=== PATIENT | male | born 1965 | race Two or more races ===

== ENCOUNTER → 2017-12-12 | Outpatient (CLI) | payer OTHER ==
[~2017-12-12] MED LIST: LOPRESSOR25 MG
== END | disposition home or self-care (01) ==
LOC: LAB 14:56
DX: R31.0 Gross hematuria (principal)

== ENCOUNTER 2017-12-13 06:34 | Outpatient (CLI) | payer OTHER | END 2017-12-13 07:26 | disposition home or self-care (01) | LOC: LAB 06:34 | DX: R31.0 Gross hematuria (principal) ==

== ENCOUNTER 2017-12-13 07:09 | Outpatient (CLI) | payer OTHER | END 2017-12-13 09:42 | disposition home or self-care (01) | LOC: TOM 07:09 | DX: R31.0 Gross hematuria (principal) ==

== ENCOUNTER 2018-01-03 11:53 | Outpatient (CLI) | payer OTHER | END 2018-01-03 15:00 | disposition home or self-care (01) | LOC: RAD 11:53 | DX: N20.1 Calculus of ureter (principal) ==

== ENCOUNTER 2021-06-08 09:30 | Emergency (ER) | payer OTHER ==
[~2021-06-08] VITALS: Ht 177.8 cm; Wt 108.9 kg
[2021-06-08] MEDS ORDERED: ADULT LOW DOSE81 M1 PO (09:45)
[2021-06-08] MEDS ORDERED: HYDROCHLOROTH12.5 MG PO (09:45)
[2021-06-08] MEDS ORDERED: SYNTHROID100 MCG PO (09:46)
[2021-06-08] MEDS ORDERED: TOPROL XL100 M1 PO (09:46)
== END 2021-06-08 10:44 | disposition home or self-care (01) ==
LOC: ER 09:30
DX: S93.401A Sprain of unspecified ligament of right ankle, initial encounter (principal); W18.30XA Fall on same level, unspecified, initial encounter; Y93.01 Activity, walking, marching and hiking; Y92.480 Sidewalk as the place of occurrence of the external cause; Y99.9 Unspecified external cause status

== ENCOUNTER → 2024-07-27 | Emergency (ER) | payer OTHER ==
[~2024-07-27] VITALS: Ht 180.3 cm; Wt 108.9 kg
[~2024-07-27] MED LIST changes: +0.9 % SODIUM CHLORIDE 1,000 ML IV STA; +ADULT LOW DOSE81 M1 PO; +HYDROCHLOROTH12.5 MG PO; +INSULIN REGULAR, HUMAN 1,000 UNIT/10 ML UNITS IV ONE; +SYNTHROID100 MCG PO; +TOPROL XL100 M1 PO
[2024-07-27 12:06] LABS: HEMATOCRIT 44.9 % (39.0-48.0); HEMOGLOBIN 15.5 g/dL (13-16.00); MEAN CELL VOLUME 87.5 fL (80.0-100.00); MEAN CORPUSCULAR HEMOGLOBIN 30.2 pg (27.00-32.0); MEAN CORPUSCULAR HGB CONC 34.5 g/dl (32.0-36.0); PLATELET COUNT 208 K/uL (150-450); RED BLOOD COUNT 5.13 M/uL (4.00-6.00); RED CELL DISTRIBUTION WIDTH 12.8 % (11.5-14.5)
[2024-07-27 12:40] LABS: ALBUMIN 3.3 gm/dL (3.4-5.0); BILIRUBIN TOTAL 0.7 mg/dL (0.3-1.2); CREATININE SERUM 1.16 mg/dL (0.70-1.30); GFR 64.01; GLOBULINA 3.7 G/DL (2.4-3.5); POTASSIUM 4.07 mEq/L (3.5-5.1)
[2024-07-27 12:42] LABS: URINE APPEARANCE Clear; URINE BILIRRUBIN Negative (NEGATIVE); URINE BLOOD Negative; URINE COLOR Yellow; URINE KETONE Negative (NEGATIVE); URINE LEUKOCYTE Negative; URINE NITRATE Negative; URINE PROTEIN Negative (NEGATIVE); URINE UROBILINOGEN 0.2 E.U./dl
[2024-07-27 12:46] LABS: ABG PH 7.426 (7.35-7.45); ABG PO2 85.8 mmHg (80-100); BASE EXCESS 0.8 mmol/l; BICARBONATE 25.1 mmol/l (23-25); SaO2 96.8 %; Tco2 26.2 mmol/l
[2024-07-27 13:16] LABS: allen test SATISFACTORY; o2 21 %; puncture site RADIAL RIGHT
[2024-07-27 13:32] LABS: URINE BACTERIA 3.6 uL (0.0-1933); URINE CAST 0.14 uL (0.0-1.40); URINE EPITHELIAL CELLS 0.4 uL (0.0-38.8); URINE GLUCOSE >=1000 MG/DL (NEGATIVE); URINE RBC 0.1 uL (0.0-20.8); URINE WBC 0.4 uL (0.0-23.2)
== END | disposition home or self-care (01) ==
LOC: ER 10:20
PROVIDERS: Emergency Medicine
DX: E11.65 Type 2 diabetes mellitus with hyperglycemia (principal); Z79.84 Long term (current) use of oral hypoglycemic drugs; I10 Essential (primary) hypertension

== ENCOUNTER 2024-09-05 16:17 | Emergency (ER) | payer OTHER ==
[~2024-09-05] VITALS: Ht 177.8 cm; Wt 102.1 kg
[~2024-09-05 16:17] MED LIST changes: -0.9 % SODIUM CHLORIDE 1,000 ML IV STA; -INSULIN REGULAR, HUMAN 1,000 UNIT/10 ML UNITS IV ONE
[2024-09-05] MEDS ORDERED: COZAAR100 MG PO (16:21)
[2024-09-05] MEDS ORDERED: METFORMIN HCL500 M3 PO (16:21)
== END 2024-09-05 17:22 | disposition home or self-care (01) ==
LOC: ER 16:17
DX: K64.8 Other hemorrhoids (principal); I10 Essential (primary) hypertension

== ENCOUNTER 2024-09-07 09:34 | Emergency (ER) | payer OTHER ==
[~2024-09-07] VITALS: Ht 177.8 cm; Wt 99.8 kg
[~2024-09-07 09:34] MED LIST changes: +COZAAR100 MG PO; +METFORMIN HCL500 M3 PO
[2024-09-07] MEDS ORDERED: PANTOPRAZOLE SODIUM 40 MG/VIAL VIAL IV ONE (11:15)
[2024-09-07] MEDS ORDERED: KETOROLAC TROMETHAMINE 30 MG VIAL IV ONE (11:15)
[2024-09-07] MEDS ORDERED: CEFTRIAXONE SODIUM 1,000 MG VIAL IV ONE (11:15)
[2024-09-07] MEDS ORDERED: 0.9 % SODIUM CHLORIDE 1,000 ML IV ONE (11:15)
[2024-09-07] MEDS ORDERED: KETOROLAC TROMETHAMINE 30 MG VIAL ONE (11:28)
[2024-09-07] MEDS ORDERED: CEFTRIAXONE SODIUM 1,000 MG VIAL ONE (11:29)
[2024-09-07 12:40] LABS: PH,URINE 5.5 (5.0-8.0); URINE APPEARANCE Clear; URINE BILIRRUBIN Negative (NEGATIVE); URINE BLOOD Negative; URINE COLOR Yellow; URINE EPITHELIAL CELLS 3.6 uL (0.0-38.8); URINE KETONE Negative (NEGATIVE); URINE LEUKOCYTE Negative; URINE NITRATE Negative; URINE PROTEIN Negative (NEGATIVE); URINE UROBILINOGEN 0.2 E.U./dl; URINE WBC 2.6 uL (0.0-23.2)
[2024-09-07 12:47] LABS: URINE BACTERIA 2.4 uL (0.0-1933); URINE CAST 0.73 uL (0.0-1.40); URINE GLUCOSE >=1000 MG/DL (NEGATIVE); URINE RBC 1.7 uL (0.0-20.8)
[2024-09-07 12:57] LABS: HEMATOCRIT 42.6 % (39.0-48.0); HEMOGLOBIN 14.5 g/dL (13-16.00); MEAN CELL VOLUME 87.6 fL (80.0-100.00); MEAN CORPUSCULAR HEMOGLOBIN 29.8 pg (27.00-32.0); PLATELET COUNT 235 K/uL (150-450); RED BLOOD COUNT 4.86 M/uL (4.00-6.00); RED CELL DISTRIBUTION WIDTH 12.3 % (11.5-14.5)
[2024-09-07 13:03] LABS: INR 1.07; PARTIAL THROMBOPLASTIN TIME 27.1 SECONDS (22.0-34.0); PROTHROMBIN TIME 11.6 SECONDS (9.0-11.5)
[2024-09-07 13:16] LABS: ALBUMIN 2.9 gm/dL (3.4-5.0); BILIRUBIN TOTAL 0.66 mg/dL (0.3-1.2); CALCIUM 9.1 mg/dL (8.5-10.1); CREATININE SERUM 1.09 mg/dL (0.70-1.30); GFR 68.77; GLOBULINA 4.4 G/DL (2.4-3.5); POTASSIUM 4.15 mEq/L (3.5-5.1); TOTAL PROTEIN 7.3 gm/dL (6.4-8.2)
[2024-09-07] MEDS ORDERED: INSULIN REGULAR, HUMAN 1,000 UNIT/10 ML UNITS IV ONE ×2 (13:45)
[2024-09-07] MEDS ORDERED: METRONIDAZOLE/SODIUM CHLORIDE 500 MG/100 ML PIGGYBACK IV STA (15:31)
[2024-09-07] MEDS ORDERED: METRONIDAZOLE500 MG PO (15:32)
[2024-09-07] MEDS ORDERED: INTESTINEX680 M1 PO (15:32)
[2024-09-07] MEDS ORDERED: CIPRO500 MG PO (15:32)
[2024-09-07] MEDS ORDERED: METRONIDAZOLE/SODIUM CHLORIDE 500 MG/100 ML PIGGYBACK IV ONE (15:59)
== END 2024-09-07 17:34 | disposition home or self-care (01) ==
LOC: ER 09:34
PROVIDERS: General Practice
DX: K62.89 Other specified diseases of anus and rectum (principal); K62.5 Hemorrhage of anus and rectum; C20 Malignant neoplasm of rectum; K64.9 Unspecified hemorrhoids; I10 Essential (primary) hypertension; E03.8 Other specified hypothyroidism; E11.9 Type 2 diabetes mellitus without complications; Z79.84 Long term (current) use of oral hypoglycemic drugs
CPT/HCPCS: 36415; 74177; Q9965